=== PATIENT | male | born 1990 | race Caucasian/White ===

== ENCOUNTER 2016-05-17 18:48 | Observation (INO) | payer OTHER ==
[2016-05-17 22:53] LABS: HEMOGLOBIN 17.3 gm/dl (14.0-17.5); RED BLOOD COUNT 5.45 M/UL (4.20-5.50); WHITE BLOOD COUNT 9.9 K/UL (4.5-11.0)
[2016-05-17 23:24] LABS: BUN/CREATININE RATIO 15 (0-10)
[2016-05-18] MEDS ORDERED: FLEXERIL 10 MG10 MG PO (02:56)
[2016-05-18 07:41] LABS: BUN/CREATININE RATIO 12 (0-10)
== END 2016-05-18 17:17 | disposition home or self-care (01) ==
LOC: ER1 18:48 → EDSEX 18:48 → ZEROF 23:55 → M/S 23:55
PROVIDERS: Emergency Medicine; ADMIT Internal Medicine
DX: M62.82 Rhabdomyolysis (principal); R07.89 Other chest pain; R94.5 Abnormal results of liver function studies; I10 Essential (primary) hypertension; X50.0XXA Overexertion from strenuous movement or load, initial encounter
CPT/HCPCS: 36415; 71010; 80048; 80053; 82550; 82553; 83874; 84484; 85025; 85379; 93005; 99285; G0378

== ENCOUNTER → 2016-06-04 | Outpatient (CLI) | payer OTHER ==
[~2016-06-04] MED LIST: FLEXERIL 10 MG10 MG PO
== END ==
LOC: HEART 5 11:00
DX: R07.9 Chest pain, unspecified (principal)